=== PATIENT | male | born 1965 | race Hispanic/Latino ===

== ENCOUNTER → 2017-07-29 | Outpatient (CLI) | payer OTHER ==
--- NOTE | 2017-07-30 08:48 | Diagnostic Imaging Report ---
MRI of the right ankle without contrast. History: Ruptured Achilles tendon. Decreased range of motion. Pain not responding to conservative management Technique: Utilizing a high-field 1.5T magnet, the following sequences were acquired: PD FS in all 3 planes with additional axial PD. Comparison: None. Findings: Achilles tendon and plantar fascia: The Achilles tendon is intact. There is a trace amount of retrocalcaneal bursal fluid. There is mid substance degeneration and scarring involving the medial cord of the plantar fascia. There is a small bone spur at the inferior calcaneal insertion site. No plantar fascial tear is seen. Cartilage and bone: Negative for osteochondral lesion of the tibiotalar and subtalar joints. Negative for fracture, osteonecrosis, or stress related edema. Medial ankle: The deltoid ligament complex is intact. The medial flexor tendons are normal. There is a physiologic amount of fluid within the tendon sheath of FHL. Lateral ankle: The anterior talofibular, calcaneofibular, and posterior talofibular ligaments are intact. The syndesmotic ligaments are intact. The peroneal tendons are normal. Anterior ankle: The anterior extensor tendons are normal. Other findings: There is a small tibiotalar joint effusion and mild synovitis. Impression: The visualized portion of the Achilles tendon is intact. There is a trace amount of retrocalcaneal bursal fluid. Findings likely due to chronic planter fasciitis. No plantar fascial tear is seen. Signed by: Dr. Zackary Snyder M.D. on 07/30/2017 8:45 AM
== END ==
LOC: MRI 16:21
PROVIDERS: ATTEND Podiatrist Foot & Ankle Surgery
DX: S86.011A Strain of right Achilles tendon, initial encounter (principal)